=== PATIENT | female | born 1980 | race Caucasian/White ===

== ENCOUNTER 2018-06-11 22:22 | Outpatient (CLI) | payer MEDICAID ==
[2018-06-11 22:55] LABS: ADD UMIC YES; UR ASCORBIC ACID NEGATIVE (NEGATIVE); UR BACTERIA FEW /HPF (NONE SEEN); UR BILIRUBIN (Dip) NEGATIVE (NEGATIVE); UR BLOOD (Dip) NEGATIVE (NEGATIVE); UR CLARITY SLIGHTLY CLOUDY (CLEAR); UR COLOR STRAW (YELLOW); UR GLUCOSE (Dip) NEGATIVE (NEGATIVE); UR KETONES (Dip) NEGATIVE (NEGATIVE); UR LEUKOCYTE ESTERASE (Dip) 2+ Leu/ul (NEGATIVE); UR NITRITE (Dip) NEGATIVE (NEGATIVE); UR RBC 1 /HPF (0-5); UR SPECIFIC GRAVITY (Dip) 1.004 (1.003-1.030); UR SQUAMOUS EPITHELIAL CELL FEW /HPF (FEW); UR TOTAL PROTEIN (Dip) NEGATIVE (NEGATIVE); UR UROBILINOGEN (Dip) NEGATIVE (NEGATIVE); UR WBC 12 /HPF (0-5)
== END 2018-06-12 00:48 | disposition home or self-care (01) ==
LOC: OBT 22:22 → L-D 22:23
DX: O26.853 Spotting complicating pregnancy, third trimester (principal); O32.1XX0 Maternal care for breech presentation, not applicable or unspecified; O09.523 Supervision of elderly multigravida, third trimester; Z3A.35 35 weeks gestation of pregnancy
CPT/HCPCS: 76815; 76818; 81001

== ENCOUNTER 2018-07-11 08:35 | Inpatient (IN) | payer MEDICAID ==
[2018-07-11] MEDS ORDERED: CEFAZOLIN 2 GM/50 ML (PMX) 50 ML IVPB (09:00)
[2018-07-11] MEDS ORDERED: CARBOPROST 250 MCG INJ IM ×2 (09:00→18:00)
[2018-07-11] MEDS ORDERED: OXYTOCIN 30 UNITS/LR 500 ML IV ×2 (09:00→18:00)
[2018-07-11] MEDS ORDERED: METHYLERGONOVINE 0.2 MG INJ IM ×2 (09:00→18:00)
[2018-07-11] MEDS ORDERED: MISOPROSTOL 200 MCG TAB PR ×2 (09:00→18:00)
[2018-07-11 09:22] LABS: ADD MAN DIFF? NO
[2018-07-11 09:25] LABS: WHITE BLOOD COUNT 9.8 10^3/ul (4.8-10.8)
[2018-07-11 09:25] LABS: BASOPHILS % 0.3 % (0.0-2.0); EOSINOPHILS # 0.1 10^3/ul (0.0-0.5); EOSINOPHILS % 0.6 % (0.0-7.0); HEMATOCRIT 39.7 % (37.0-47.0); HEMOGLOBIN 13.9 g/dl (12.0-16.0); LYMPHOCYTES # 1.8 10^3/ul (0.8-2.9); LYMPHOCYTES % 18.7 % (15.0-51.0); MEAN CORPUSCULAR VOLUME 88.6 fl (82.0-101.0); MEAN PLATELET VOLUME 10.6 fl (7.4-10.4); MONOCYTE # 0.5 10^3/ul (0.3-0.9); MONOCYTES % 5.2 % (0.0-11.0); NEUTROPHIL # 7.2 10^3/ul (1.6-7.5); NEUTROPHILS % 73.8 % (39.0-77.0); PLATELET COUNT 244 10^3/UL (140-415); RED BLOOD COUNT 4.48 10^6/ul (4.20-5.40); RED CELL DISTRIBUTION WIDTH 13.1 % (11.5-14.5)
[2018-07-11] MEDS: LACTATED RINGER'S 1,000 ML IV ×2 (09:27→13:38)
[2018-07-11 09:44] LABS: INR 0.84; PARTIAL THROMBOPLASTIN TIME 27.4 Sec (23.0-35.0); PROTIME 11.6 Sec (11.9-14.9); PT RATIO 0.9
[2018-07-11 10:15] LABS: HEPATITIS B SURFACE ANTIGEN NEGATIVE (NEGATIVE)
[2018-07-11] MEDS ORDERED: HYDROmorphONE 0.5 MG/0.5 ML SYG IV ×2 (11:00)
[2018-07-11] MEDS ORDERED: DIPHENHYDRAMINE 50 MG INJ IV (11:00)
[2018-07-11] MEDS ORDERED: ONDANSETRON 4 MG INJ IV (11:00)
[2018-07-11] MEDS ORDERED: KETOROLAC 30 MG INJ IV (11:00)
[2018-07-11] MEDS ORDERED: NALOXONE (0.4 MG/ML) INJ IV (11:00)
[2018-07-11] MEDS ORDERED: ZOLPIDEM 5 MG TAB PO (11:00)
[2018-07-11] MEDS ORDERED: FENTAnyl 50 MCG/ML VIAL (14:14)
[2018-07-11] MEDS ORDERED: morphine SULFATE/PF (10 MG/10 ML) INJ (14:14)
[2018-07-11] MEDS ORDERED: DEXAMETHASONE 4 MG/ML 1 ML INJ (14:35)
[2018-07-11] MEDS: OXYTOCIN 30 UNITS/LR 500 ML IV ×2 (15:26→18:42)
[2018-07-11 17:18] LABS: RAPID PLASMA REAGIN NONREACTIVE (NR)
[2018-07-11] MEDS ORDERED: NA PHOSPHATE/BIPHOS 133 ML ENEMA PR (18:00)
[2018-07-11] MEDS ORDERED: NACL 0.9% 3 ML SYG IV (18:00)
[2018-07-12] MEDS: LACTATED RINGER'S 1,000 ML IV (04:13)
[2018-07-12 07:13] LABS: ADD MAN DIFF? NO
[2018-07-12 07:17] LABS: WHITE BLOOD COUNT 14.2 10^3/ul (4.8-10.8)
[2018-07-12 07:17] LABS: BASOPHILS % 0.2 % (0.0-2.0); HEMATOCRIT 34.2 % (37.0-47.0); HEMOGLOBIN 11.6 g/dl (12.0-16.0); LYMPHOCYTES # 1.8 10^3/ul (0.8-2.9); LYMPHOCYTES % 12.7 % (15.0-51.0); MEAN CORPUSCULAR HEMOGLOBIN 30.2 pg (29.0-33.0); MEAN CORPUSCULAR HGB CONC 33.9 g/dl (32.0-37.0); MEAN CORPUSCULAR VOLUME 89.1 fl (82.0-101.0); MEAN PLATELET VOLUME 10.7 fl (7.4-10.4); MONOCYTE # 0.9 10^3/ul (0.3-0.9); MONOCYTES % 6.6 % (0.0-11.0); NEUTROPHIL # 11.3 10^3/ul (1.6-7.5); NEUTROPHILS % 79.5 % (39.0-77.0); PLATELET COUNT 237 10^3/UL (140-415); RED BLOOD COUNT 3.84 10^6/ul (4.20-5.40)
[2018-07-12] MEDS: KETOROLAC 30 MG INJ IV (11:28)
[2018-07-12] MEDS: IBUPROFEN 800 MG TAB PO ×2 (14:00→23:07)
[2018-07-12] MEDS: MAGNESIUM HYDROXIDE 30ML CUP PO (18:07)
[2018-07-13] MEDS: IBUPROFEN 800 MG TAB PO ×3 (06:25→21:16)
[2018-07-14] MEDS: IBUPROFEN 800 MG TAB PO ×2 (05:46→15:30)
[2018-07-14] MEDS: MEASLES,MUMPS,RUBELLA VACCINE INJ SC* (09:00)
[2018-07-14] MEDS: HYDROCODONE/APAP (5/325) TAB PO (12:25)
[2018-07-14] MEDS: DIPHTH/TET/ACEL PERTUSS (ADULT) 0.5 ML VIAL IM* (12:25)
[2018-07-14] MEDS: LANOLIN HPA 1 PKT TOP (12:26)
== END 2018-07-14 18:50 | disposition home or self-care (01) | DRG 788 ==
LOC: L-D 08:35 → PP1 17:48
PROVIDERS: Obstetrics & Gynecology
PROC: 10D00Z1 Extraction of Products of Conception, Low, Open Approach (ICD-10-PCS; principal; 2018-07-11 15:00)
DX: O34.211 Maternal care for low transverse scar from previous cesarean delivery (principal); Z3A.00 Weeks of gestation of pregnancy not specified; Z37.0 Single live birth; Z23 Encounter for immunization
CPT/HCPCS: 85025; 85610; 85730; 86592; 86850; 86900; 86901; 87340; 90715; 99464

== ENCOUNTER 2018-10-02 12:18 | Emergency (ER) | payer MEDICAID ==
[2018-10-02] MEDS: ACETAMINOPHEN 500 MG TAB PO (14:45)
== END 2018-10-02 15:23 | disposition home or self-care (01) ==
LOC: FTE 12:18
DX: N61.0 Mastitis without abscess (principal)
CPT/HCPCS: 99283; Z7502